=== PATIENT | male | born 1995 | race Caucasian/White ===

== ENCOUNTER 2017-03-19 17:10 | Emergency (ER) | payer OTHER ==
[~2017-03-19] VITALS: Ht 167.6 cm; Wt 61.2 kg
[~2017-03-19 17:10] MED LIST: ONDANSETRON 4 MG/2 ML (SDV) Z0FRAN ONE
[2017-03-19] MEDS ORDERED: NS IV 1000 ML 1,000 ML IV ONE (17:23)
[2017-03-19 17:33] LABS: BASOPHILS % (AUTO) 1 % (0-10); EOSINOPHILS # (AUTO) 0.1 10^3/uL (0.0-0.3); EOSINOPHILS % (AUTO) 1 % (0-10); LYMPHOCYTES # (AUTO) 2.4 X 10^3 (1.0-4.0); LYMPHOCYTES % (AUTO) 38 % (12-44); MEAN CORPUSCULAR HEMOGLOBIN 31 PG (25-34); MEAN CORPUSCULAR HGB CONC 36 G/DL (32-36); MEAN CORPUSCULAR VOLUME 88 FL (80-99); MEAN PLATELET VOLUME 10.5 FL (7.4-10.4); MONOCYTES # (AUTO) 0.6 X 10^3 (0.0-1.0); MONOCYTES % (AUTO) 10 % (0-12); NEUTROPHILS # (AUTO) 3.3 X 10^3 (1.8-7.8); NEUTROPHILS % (AUTO) 51 % (42-75); PLATELET COUNT 255 10^3/uL (130-400); RED BLOOD COUNT 5.07 10^6/uL (4.35-5.85); RED CELL DISTRIBUTION WIDTH 12.1 % (10.0-14.5); WHITE BLOOD COUNT 6.5 10^3/uL (4.3-11.0)
[2017-03-19 17:46] LABS: ANION GAP 18 MMOL/L (5-14); BILIRUBIN,TOTAL 0.6 MG/DL (0.1-1.0); BLOOD UREA NITROGEN 17 MG/DL (7-18); BUN/CREATININE RATIO 16; CALCIUM 9.5 MG/DL (8.5-10.1); CARBON DIOXIDE 16 MMOL/L (21-32); CHLORIDE 105 MMOL/L (98-107); CREATININE SERUM 1.07 MG/DL (0.60-1.30); GFR ESTIMATED > 60; GLUCOSE 136 MG/DL (70-105); MAGNESIUM 2.1 MG/DL (1.8-2.4); POTASSIUM 3.6 MMOL/L (3.6-5.0); SODIUM 139 MMOL/L (135-145)
[2017-03-19 17:47] LABS: ALANINE AMINOTRANSFERASE 34 U/L (0-55); ALBUMIN 4.6 GM/DL (3.2-4.5); ASPARTATE AMINO TRANSFERASE 39 U/L (5-34); TOTAL PROTEIN 7.9 GM/DL (6.4-8.2)
--- NOTE | 2017-03-19 18:04 | Diagnostic Imaging Report ---
PROCEDURE: CT head without contrast. TECHNIQUE: Multiple contiguous axial images were obtained through the brain without the use of intravenous contrast. INDICATION: Tonic-clonic seizure resulted in head injury and laceration to the left forehead. COMPARISON: None. FINDINGS: There is no intracranial hemorrhage. There are no abnormal extra-axial fluid collections. No findings of focal or generalized cerebral edema, no evidence for elevation to the intracranial pressures. The basilar cisterns are patent, the sulci non-effaced and the jansen-white matter differentiations are well maintained. There is no appreciable or displaced calvarial fracture deformity. There is laceration and soft tissue irregularity of the left frontal region, underlying skull unremarkable. Partially visualized orbits and paranasal sinuses are nonacute. IMPRESSION: Left frontal scalp laceration; however, no intracerebral hemorrhage or appreciable fracture deformity. Dictated by: Dictated on workstation # [id number]
--- NOTE | 2017-03-19 18:05 | Diagnostic Imaging Report ---
INDICATION: Tonic-clonic seizure resulted in laceration and painful limitations in range of motion of the shoulder. EXAMINATION: Three views of the right shoulder were obtained. FINDINGS: Exam confirms the presence of an anterior subcoracoid glenohumeral dislocation. No appreciable fracture deformity; however, post reduction radiographs suggested. IMPRESSION: An anterior subcoracoid glenohumeral dislocation is confirmed without visualized fracture. Dictated by: Dictated on workstation # [id number]
[2017-03-19] MEDS ORDERED: LIDOCAINE 1% INJ 20 ML (XYLOCAINE) VIAL INJ STA (18:06)
--- NOTE | 2017-03-19 18:13 | ED Neurological Problem ---
General Chief Complaint: Neurological Problems Stated Complaint: SEIZURE Nursing Triage Note: TONIC CLONIC SEIZURE, HIT HEAD ON COUNTER CAUSING LAC TO L UPPER FOREHEAD, R SHOULDER OBVIOUSLY DISLOCATED Nursing Sepsis Screen: No Definite Risk Source: patient Exam Limitations: no limitations (KONRAD CHACON MD) History of Present Illness Time seen by provider: 17:15 Initial Comments Here by EMS with report of seizure. Apparently he was at work when this occurred and he hit his head on the counter and fell to the ground. He is right shoulder dislocation and laceration to the left side of the head. States he never really had a seizure before except for one time when he drank a lot of cold water after he was very hot. Complains of pain to the right shoulder and to the head but denies other injury. Denies other significant medical problems. EMS did give 150 g of fentanyl IV in route for the pain as well as 4 mg of Zofran for nausea and vomiting. Timing/Duration: 1/2 hour Severity: moderate Associated Symptoms: No fever/chills, nausea/vomiting, No paresthesia, seizures , No vision changes (KONRAD CHACON MD) Allergies and Home Medications Allergies Coded Allergies: Penicillins (Verified Allergy, Unknown, 03/19/17) hydrocodone (Verified Allergy, Unknown, 03/19/17) Home Medications Cephalexin 500 Mg Capsule, 500 MG PO TID, #21 Ref 0 Prescribed by: YEIMI HUNTER on 03/19/171951 Oxycodone HCl/Acetaminophen 1 Each Tablet, 1 EACH PO Q6H PRN for PAIN-MODERATE TO SEVERE, #20 Ref 0 Prescribed by: YEIMI HUNTER on 03/19/171951 Constitutional: see HPI, No chills, No fever Eyes: No Symptoms Reported Ears, Nose, Mouth, Throat: no symptoms reported Respiratory: no symptoms reported Cardiovascular: no symptoms reported Gastrointestinal: nausea, vomiting Genitourinary: no symptoms reported Musculoskeletal: see HPI, joint pain, muscle pain Skin: see HPI, lesions Psychiatric/Neurological: No Symptoms Reported (KONRAD CHACON MD) All Other Systems Reviewed Negative Unless Noted: Yes (KONRAD CHACON MD) Past Zxxravv-Rnuyox-Wahkao Hx Patient Social History Alcohol Use: Denies Use Recreational Drug Use: Yes Drug of Choice: MARIJUANA Smoking Status: Never a Smoker Recent Foreign Travel: No Contact w/Someone Who Travel: No Recent Infectious Disease Expo: No Recent Hopitalizations: No (KONRAD CHACON MD) Surgeries History of Surgeries: No (KONRAD CHACON MD) Respiratory History of Respiratory Disorde: No (KONRAD CHACON MD) Cardiovascular History of Cardiac Disorders: No (KONRAD CHACON MD) Neurological History of Neurological Disord: No (KONRAD CHACON MD) Genitourinary History of Genitourinary Disor: No (KONRAD CHACON MD) Gastrointestinal History of Gastrointestinal Di: No (KONRAD CHACON MD) Musculoskeletal History of Musculoskeletal Dis: No (KONRAD CHACON MD) Integumentary History of Skin or Integumenta: No (KONRAD CHACON MD) Reviewed Nursing Assessment Reviewed/Agree w Nursing PMH: Yes (KONRAD CHACON MD) Physical Exam Vital Signs Vital Sign - Last 12Hours 03/19/17 03/19/17 17:10 18:40 Temp 97.8 Pulse 96 Resp 16 B/P (MAP) 142/96 Pulse Ox 100 O2 Delivery Nasal Cannula O2 Flow Rate 98.00 2.00 (YEIMI HUNTER) Vital Signs Capillary Refill : Less Than 3 Seconds (KONRAD CHACON MD) General Appearance: WD/WN, no apparent distress HEENT: PERRL/EOMI, TMs normal, pharynx normal Neck: non-tender, full range of motion, supple, normal inspection Respiratory: lungs clear, normal breath sounds Cardiovascular: regular rate, rhythm, no murmur Gastrointestinal: non tender, soft Back: normal inspection, no CVA tenderness, no vertebral tenderness Extremities: no pedal edema, no calf tenderness, other (obvious dislocation anterior to the right shoulder. Distal sensation and circulation intact. Good handgrips bilaterally.) Neurologic/Psychiatric: alert, normal mood/affect, oriented x 3 Crainal Nerves: normal hearing, normal speech, PERRL Motor/Sensory: no motor deficit, no sensory deficit Skin: warm/dry, other (5 cm laceration to the left forehead area.) (KONRAD CHACON MD) Patient Education: Explained Benefits Agreement on procedure with pt: Yes Breath Sounds per Auscultation: Clear Heart Sounds per Auscultation: Regular Airway Exam: Mouth opens >2 fingers Sedation Adminstration Time: 18:43 Total Time spent in CS 20 min Progress/Conclusion Patient required 2 doses of Versed at 2.5 mg each as well as a total of 100 g of fentanyl to get adequate sedation for shoulder reduction. Tolerated procedure and sedation well with no complications. No episodes of hypoxia and patient actually talked throughout most of the procedure. Re-examination Time: 19:30 Re-examination Patient awake and milligrams a. No hypoxia. Requesting something to drink. (KONRAD CHACON MD) Laceration Repair : Wound Location: Face (left frontal) Wound Length (cm): 2 Wound's Depth, Shape: superficial Wound Explored: clean Irrigated w/ Saline (ccs): 300 Betadine Prep?: Yes Anesthesia: 1% Lidocaine Volume Anesthetic (ccs): 5 Wound Debrided: minimal Suture: Ethlion Suture Size: 5-0 Number of Sutures: 5 Sterile Dressing Applied?: Yes Progress Wound well approximated, sterile dressing applied, patient tolerated procedure well. (YEIMI HUNTER) Splinting and Joint Reduction : Location: right shoulder Pre-Proc Neuro Vasc Exam: normal Post-Proc Neuro Vasc Exam: normal Progress Patient complaining of right shoulder pain with positive sulcus sign. X-rays show anterior dislocation. Joint Reduction Site: shoulder (R) Reduction Attempts: 2 Pre-Procedure NV Exam: Yes post joint reduction film: joint reduced Progress After adequate conscious sedation with fentanyl and versed (managed by Dr. Chacon), a sheet was placed in the antecubital space of the right elbow and gentle lateral traction was applied with left countertraction with an axillary sheet per Dr. Chacon. Additional Versed was given. Once adequate sedation and muscle relaxation was obtained, gentle traction was applied to the right arm laterally. The humeral head easily slid into the gleno-humeral space, an audible click was heard. The patient verbalized immediate resolution of his pain. Negative sulcus sign at this point. A shoulder immobilizer was put in place. Neurovascular status remained intact pre-and postreduction. The patient tolerated the procedure well with no complaints. Postreduction films show adequate reduction of the glenohumeral joint, no acute fractures or other bony abnormalities noted. Tra wrap: No Immobilizers: Medium Shoulder (YEIMI HUNTER) Progress/Results/Core Measures Results/Orders Lab Results Laboratory Tests Test 03/19/17 17:15 Range/Units White Blood Count 6.5 4.3-11.0 10^3/uL Red Blood Count 5.07 4.35-5.85 10^6/uL Hemoglobin 15.9 13.3-17.7 G/DL Hematocrit 45 40-54 % Mean Corpuscular Volume 88 80-99 FL Mean Corpuscular Hemoglobin 31 25-34 PG Mean Corpuscular Hemoglobin Concent 36 32-36 G/DL Red Cell Distribution Width 12.1 10.0-14.5 % Platelet Count 255 130-400 10^3/uL Mean Platelet Volume 10.5 H 7.4-10.4 FL Neutrophils (%) (Auto) 51 42-75 % Lymphocytes (%) (Auto) 38 12-44 % Monocytes (%) (Auto) 10 0-12 % Eosinophils (%) (Auto) 1 0-10 % Basophils (%) (Auto) 1 0-10 % Neutrophils # (Auto) 3.3 1.8-7.8 X 10^3 Lymphocytes # (Auto) 2.4 1.0-4.0 X 10^3 Monocytes # (Auto) 0.6 0.0-1.0 X 10^3 Eosinophils # (Auto) 0.1 0.0-0.3 10^3/uL Basophils # (Auto) 0.0 0.0-0.1 10^3/uL Sodium Level 139 135-145 MMOL/L Potassium Level 3.6 3.6-5.0 MMOL/L Chloride Level 105 98-107 MMOL/L Carbon Dioxide Level 16 L 21-32 MMOL/L Anion Gap 18 H 5-14 MMOL/L Blood Urea Nitrogen 17 7-18 MG/DL Creatinine 1.07 0.60-1.30 MG/DL Estimat Glomerular Filtration Rate > 60 BUN/Creatinine Ratio 16 Glucose Level 136 H 70-105 MG/DL Calcium Level 9.5 8.5-10.1 MG/DL Magnesium Level 2.1 1.8-2.4 MG/DL Total Bilirubin 0.6 0.1-1.0 MG/DL Aspartate Amino Transf (AST/SGOT) 39 H 5-34 U/L Alanine Aminotransferase (ALT/SGPT) 34 0-55 U/L Alkaline Phosphatase 78 40-136 U/L Total Protein 7.9 6.4-8.2 GM/DL Albumin 4.6 H 3.2-4.5 GM/DL (DALEYEIMI CAROLE) My Orders Orders - YEIMI HUNTER Shoulder, Right, 1 View (03/19/17 18:57) (YEIMI HUNTER CAROLE) Medications Given in ED Current Medications Medications Dose Ordered Sig/Dania Route Start Time Stop Time Status Last Admin Dose Admin Fentanyl Citrate 100 mcg ONCE ONCE IVP 03/19/17 18:15 03/19/17 18:16 DC 03/19/17 18:43 100 MCG Midazolam HCl 2.5 mg ONCE ONCE IVP 03/19/17 19:00 03/19/17 19:01 DC 03/19/17 18:50 2.5 MG Midazolam HCl 5 mg ONCE ONCE IVP 03/19/17 18:15 03/19/17 18:16 DC 03/19/17 18:46 2.5 MG Ondansetron HCl 4 mg STK-MED ONCE .ROUTE 03/19/17 17:09 03/19/17 17:17 DC 03/19/17 17:32 4 MG Sodium Chloride 1,000 ml @ 0 mls/hr Q0M ONCE IV 03/19/17 17:23 03/19/17 17:25 DC 03/19/17 18:20 250 MLS/HR (YEIMI HUNTER CAROLE) Vital Signs/I&O Vital Sign - Last 12Hours 03/19/17 03/19/17 03/19/17 03/19/17 17:10 18:40 18:43 18:48 Temp 97.8 98.6 Pulse 96 86 73 Resp 16 18 16 B/P (MAP) 142/96 143/73 147/98 Pulse Ox 100 98 98 O2 Delivery Nasal Cannula Nasal Cannula Nasal Cannula O2 Flow Rate 98.00 2.00 2.00 2.00 03/19/17 03/19/17 03/19/17 03/19/17 18:52 19:00 19:15 19:30 Pulse 82 76 82 87 Resp 16 18 14 20 B/P (MAP) 147/83 147/98 147/83 147/72 Pulse Ox 99 100 100 98 O2 Delivery Nasal Cannula Nasal Cannula Nasal Cannula Room Air O2 Flow Rate 2.00 2.00 2.00 03/19/17 20:03 Temp 97.6 Pulse 88 Resp 11 Pulse Ox 97 O2 Delivery Room Air Intake and Output 03/20/17 00:00 Intake Total 1000 ml Balance 1000 ml (YEIMI HUNTER) Blood Pressure Mean: 111 Progress Note : Progress Note Seen and evaluated on arrival by EMS. IV established by EMS. Zofran [address] head, labs and x-ray right shoulder ordered. Monitor patient. (KONRAD CHACON MD) Progress Note : Progress Note Immediately after reduction of the right shoulder, the patient requested water, no gag reflex present, patient to be kept NPO until gag reflex present. Postreduction films show adequate reduction of the shoulder with no obvious fracture or other acute bony abnormalities. 1919 gag reflex present, he remains alert and oriented 3 ice chips given. 1949 discharge planning reviewed with the patient and his family. All questions answered. Restrictions and warning signs to return to emergency Department reviewed. Patient verbalized understanding. (YEIMI HUNTER) Diagnostic Imaging Diagonstic Imaging: CT Plain Films/CT/US/NM/MRI: head Comments NAME: SALVATORE ORTIZ [facility] REC#: [id number] PT STATUS: REG ER : 1995 PHYSICIAN: KONRAD CHACON MD ADMIT DATE: 03/19/17/ER Draft Date of Exam:03/19/17 CT HEAD WO PROCEDURE: CT head without contrast. TECHNIQUE: Multiple contiguous axial images were obtained through the brain without the use of intravenous contrast. INDICATION: Tonic-clonic seizure resulted in head injury and laceration to the left forehead. COMPARISON: None. FINDINGS: There is no intracranial hemorrhage. There are no abnormal extra-axial fluid collections. No findings of focal or generalized cerebral edema, no evidence for elevation to the intracranial pressures. The basilar cisterns are patent, the sulci non-effaced and the jansen-white matter differentiations are well maintained. There is no appreciable or displaced calvarial fracture deformity. There is laceration and soft tissue irregularity of the left frontal region, underlying skull unremarkable. Partially visualized orbits and paranasal sinuses are nonacute. IMPRESSION: Left frontal scalp laceration; however, no intracerebral hemorrhage or appreciable fracture deformity. Dictated on workstation # [id number] Dict: 03/19/17 6946 Trans: 03/19/171802 [facility] [id number] Interpreted by: AZUL MONK Electronically signed by: Diagonstic Imaging: Xray Plain Films/CT/US/NM/MRI: chest Comments VIA [facility]. [place], [place] NAME: SALVATORE ROTIZ [facility] REC#: [id number] PT STATUS: REG ER : 1995 PHYSICIAN: KONRAD CHACON MD ADMIT DATE: 03/19/17/ER Draft Date of Exam:03/19/17 SHOULDER, RIGHT, 3 VIEWS INDICATION: Tonic-clonic seizure resulted in laceration and painful limitations in range of motion of the shoulder. EXAMINATION: Three views of the right shoulder were obtained. FINDINGS: Exam confirms the presence of an anterior subcoracoid glenohumeral dislocation. No appreciable fracture deformity; however, post reduction radiographs suggested. IMPRESSION: An anterior subcoracoid glenohumeral dislocation is confirmed without visualized fracture. Dictated on workstation # [id number] Dict: 03/19/171756 Trans: 03/19/171803 [facility] [id number] Interpreted by: AZUL MONK Electronically signed by: Reviewed: Reviewed by Me (KONRAD CHACON MD) Diagonstic Imaging: Xray Plain Films/CT/US/NM/MRI: other (right shoulder) Comments NAME: SALVATORE ORTIZ [facility] REC#: [id number] PT STATUS: REG ER : 1995 PHYSICIAN: YEIMI HUNTER ADMIT DATE: 03/19/17/ER Signed Date of Exam: 03/19/17 SHOULDER, RIGHT, 1 VIEW INDICATION: Post reduction FINDINGS: AP radiograph shows successful reduction of the previous glenohumeral dislocation. No appreciable fracture deformity or demonstrated intra-articular loose body. There is no evidence for AC joint separation. IMPRESSION: Successful reduction of previous glenohumeral dislocation Dictated by: Dictated on workstation # [id number] Dict: 03/19/171934 Trans: 03/19/171944 Interpreted by: AZUL MONK Electronically signed by: AZUL MONK 03/19/171944 (YEIMI HUNTER) Departure Impression Impression: Primary Impression: Seizure Additional Impressions: Facial laceration Qualified Codes: S01.81XA - Laceration without foreign body of other part of head, initial encounter Dislocation of shoulder, right, closed Qualified Codes: S43.004A - Unspecified dislocation of right shoulder joint, initial encounter Disposition: 01 HOME, SELF-CARE Condition: Improved Departure-Patient Inst. Decision time for Depature: 19:15 (YEIMI HUNTER) Referrals: UNKNOWN (PCP) Primary Care Physician Patient Instructions: Seizures, Adult (DC), Shoulder Dislocation (DC) Add. Discharge Instructions: Follow-up with primary care provider and referral to neurology and orthopedics. Shoulder immobilizer at all times for right shoulder may remove to shower and then return to wearing. Gentle range of motion exercises to the right shoulder, right elbow and/wrist. Ice to right shoulder 20 minutes every 2-3 hours while awake. Ibuprofen 600 mg every 8 hours for pain. No driving for 6 months post seizure. Return to emergency department in 5-7 days for suture removal Keep suture area clean and dry, may shower. Clean with peroxide after showering. Cover with Band-Aid when away from home. Return to emergency department for seizure activity, new concerns or problems. Take antibiotic as prescribed. Use pain medication as prescribed. All discharge instructions reviewed with patient and/or family. Voiced understanding. Scripts Oxycodone HCl/Acetaminophen (Percocet 5-325 mg Tablet) 1 Each Tablet 1 EACH PO Q6H Y for PAIN-MODERATE TO SEVERE, #20 TAB 0 Refills Prov: YEIMI HUNTER 03/19/17 Cephalexin (Keflex) 500 Mg Capsule 500 MG PO TID, #21 CAP 0 Refills Prov: YEIMI HUNTER 03/19/17 Copy Copies To 1: ROCÍO RUFF MD, TIMOTHY D MD Mar 19, 2017 18:13 YEIMI HUNTER Mar 19, 2017 19:46
[2017-03-19] MEDS ORDERED: fentaNYL INJECTION 100 MCG/2 ML AMP IVP ONE (18:15)
[2017-03-19] MEDS ORDERED: MIDAZOLAM 5 MG/5 ML (VERSED) VIAL IVP ONE (18:15)
[2017-03-19] MEDS ORDERED: TETANUS,DIPTH,PERTUSS P/F (BOOSTRIX) 0.5 ML VIAL IM STA (18:30)
[2017-03-19] MEDS ORDERED: FLUMAZENIL (ROMAZICON) 0.1 MG/ML 5 ML VIAL ONE (18:34)
[2017-03-19] MEDS ORDERED: MIDAZOLAM 2 MG/2 ML (VERSED) VIAL IVP ONE (19:00)
--- NOTE | 2017-03-19 19:42 | Diagnostic Imaging Report ---
INDICATION: Post reduction FINDINGS: AP radiograph shows successful reduction of the previous glenohumeral dislocation. No appreciable fracture deformity or demonstrated intra-articular loose body. There is no evidence for AC joint separation. IMPRESSION: Successful reduction of previous glenohumeral dislocation Dictated by: Dictated on workstation # [id number]
[2017-03-19] MEDS ORDERED: OXYC-197 PO (19:52)
[2017-03-19] MEDS ORDERED: CEPH-507 PO (19:52)
[2017-03-19 20:03] VITALS: BP 145/68
== END 2017-03-19 19:56 | disposition home or self-care (01) ==
LOC: ER 17:15
DX: S43.014A Anterior dislocation of right humerus, initial encounter (principal); S01.81XA Laceration without foreign body of other part of head, initial encounter; R56.9 Unspecified convulsions; F12.10 Cannabis abuse, uncomplicated; W18.09XA Striking against other object with subsequent fall, initial encounter; Y92.59 Other trade areas as the place of occurrence of the external cause
CPT/HCPCS: 12001; 36415; 70450; 73020; 73030; 80053; 83735; 85025; 90471; 90715; 93041; 96361; 96374

== ENCOUNTER 2017-03-30 12:17 | Emergency (ER) | payer OTHER ==
[~2017-03-30] VITALS: Ht 167.6 cm; Wt 61.2 kg
[~2017-03-30 12:17] MED LIST changes: +CEPH-507 PO; -ONDANSETRON 4 MG/2 ML (SDV) Z0FRAN ONE; +OXYC-197 PO
[2017-03-30 12:43] VITALS: BP 114/79
== END 2017-03-30 12:45 | disposition home or self-care (01) ==
LOC: EDUNIT# 12:17 → ER 12:19
DX: S01.81XD Laceration without foreign body of other part of head, subsequent encounter (principal); X58.XXXD Exposure to other specified factors, subsequent encounter
CPT/HCPCS: 99281